=== PATIENT | female | born 1960 | race Caucasian/White ===

== ENCOUNTER 2017-08-13 05:35 | Emergency (ER) | END 2017-08-13 06:48 | disposition home or self-care (01) | DX: S20.211A Contusion of right front wall of thorax, initial encounter (principal); F17.200 Nicotine dependence, unspecified, uncomplicated; X58.XXXA Exposure to other specified factors, initial encounter | CPT/HCPCS: 71101; 80053; 85025; 93005; 96374; 99285; J1885 ==